=== PATIENT | male | born 1945 | race Caucasian/White ===

== ENCOUNTER 2018-05-12 11:38 | Outpatient (CLI) | payer MEDICARE, OTHER ==
[2018-05-12 12:14] LABS: Hemoglobin 12.8 g/dL (14.0-18.0); Red Blood Cell (RBC) Count 4.57 mill/uL (4.70-6.10); White Blood Cell (WBC) Count 7.2 thou/uL (4.8-10.8)
[2018-05-12 12:15] LABS: #Basophils 0.1 thou/uL (0.0-0.2); #Eosinphils 0.4 thou/uL (0.0-0.7); #Monocytes 0.5 thou/uL (0.11-0.59); #Neutrophils 5.1 thou/uL (1.40-6.50); %Basophils 0.8 % (0.0-1.0); %Eosinophils 5.5 % (0.0-10.0); %Lymphocytes 16.2 % (21.0-51.0); %Monocytes 6.4 % (0.0-10.0); %Neutrophils 71.1 % (42.0-75.0); MDiff Complete? YES; Manual Diff?? NO; Mean Corpuscular HGB CONC 32.3 g/dL (32.0-36.0); Mean Corpuscular Volume 86.7 fL (78.0-98.0); Mean Platelet Volume 6.5 fL (7.4-10.4); Platelet Count 201 thou/uL (130-400); RBC Distribution Width 12.3 % (11.5-14.5)
[2018-05-12 12:34] LABS: ALT (SGPT) 8 U/L (8-55); AST (SGOT) 20 U/L (5-34); Albumin 4.2 g/dL (3.4-4.8); Alkaline Phosphatase 106 U/L (40-150); Anion Gap 13 mmol/L (10-20); BUN (Urea Nitrogen) 17 mg/dL (8.4-25.7); Bilirubin, Total 0.4 mg/dL (0.2-1.2); Calc. Creatinine Clearance 0 mL/min (70-130); Calcium 9.5 mg/dL (7.8-10.44); Carbon Dioxide 29 mmol/L (23-31); Chloride 104 mmol/L (98-107); Estimated GFR-MDRD 65; Globulin 2.4 g/dL (2.4-3.5); Glucose 95 mg/dL (83-110); Potassium 4.4 mmol/L (3.5-5.1); Protein, Total 6.6 g/dL (5.8-8.1); Sodium 142 mmol/L (136-145)
[2018-05-12 17:25] LABS: Iron 79 ug/dL (65-175); Iron Binding Capacity, Total 284 mcg/dL (261-462)
== END 2018-05-12 11:39 | disposition home or self-care (01) ==
LOC: MADLAB 11:38
PROVIDERS: ATTEND Family Medicine
DX: R63.4 Abnormal weight loss (principal)
CPT/HCPCS: 36415; 80053; 83540; 83550; 85025; 87086

== ENCOUNTER 2018-08-27 13:04 | Outpatient (CLI) | payer MEDICARE, OTHER ==
[2018-08-27 14:45] LABS: #Basophils 0.1 thou/uL (0.0-0.2); #Eosinphils 0.3 thou/uL (0.0-0.7); #Lymphocytes 0.8 thou/uL (1.20-3.40); #Monocytes 0.5 thou/uL (0.11-0.59); %Eosinophils 3.7 % (0.0-10.0); %Lymphocytes 10.4 % (21.0-51.0); %Monocytes 6.1 % (0.0-10.0); %Neutrophils 78.9 % (42.0-75.0); Mean Corpuscular HGB CONC 32.1 g/dL (32.0-36.0); Mean Corpuscular Hemoglobin 28.5 pg (27.0-31.0); Mean Corpuscular Volume 88.7 fL (78.0-98.0); Mean Platelet Volume 6.7 fL (7.4-10.4); Platelet Count 255 thou/uL (130-400); RBC Distribution Width 12.4 % (11.5-14.5); Red Blood Cell (RBC) Count 4.55 mill/uL (4.70-6.10); White Blood Cell (WBC) Count 7.7 thou/uL (4.8-10.8)
[2018-08-27 14:50] LABS: Anion Gap 14 mmol/L (10-20); BUN (Urea Nitrogen) 17 mg/dL (8.4-25.7); Calc. Creatinine Clearance 0 mL/min (70-130); Carbon Dioxide 28 mmol/L (23-31); Chloride 104 mmol/L (98-107); Estimated GFR-MDRD 56; Potassium 3.9 mmol/L (3.5-5.1); Sodium 142 mmol/L (136-145)
[2018-08-27 14:51] LABS: ALT (SGPT) 10 U/L (8-55); AST (SGOT) 19 U/L (5-34); Albumin 4.1 g/dL (3.4-4.8); Alkaline Phosphatase 113 U/L (40-150); Bilirubin, Total 0.3 mg/dL (0.2-1.2); Calcium 9.6 mg/dL (7.8-10.44); Glucose 132 mg/dL (83-110); Protein, Total 7.1 g/dL (5.8-8.1)
--- NOTE | 2018-08-27 15:39 | RAD ---
FRONTAL VIEW CHEST: RIGHT RIB SERIES THREE VIEWS: INDICATIONS: Injury. Pain. FINDINGS: There is no evidence of consolidation or pneumothorax. There is mild blunting of the right costophre shelley sulcus. Granulomatous calcification of the chest is seen. There is a mildly displaced fracture involving the lateral aspect of the right eighth rib and subtle cortical irregularity of the lateral right ninth rib. There is mild vascular calcification. IMPRESSION: 1. Findings indicate nondisplaced fractures of the right 8th and 9th ribs. 2. No underlying pneumothorax. 3. Mild blunting of the right costophrenic sulcus could relate to small volume pleural fluid versus pleural thickening. POS: [facility]
[2018-08-27 21:45] LABS: Iron 55 ug/dL (65-175)
== END 2018-08-27 13:05 | disposition home or self-care (01) ==
LOC: MADLABBHPM 13:04
PROVIDERS: ATTEND Family Medicine
DX: N39.0 Urinary tract infection, site not specified (principal); R31.0 Gross hematuria
CPT/HCPCS: 36415; 80053; 82728; 83540; 85025; 87086

== ENCOUNTER 2019-01-14 12:46 | Outpatient (CLI) | payer MEDICARE, OTHER ==
[2019-01-14 13:51] LABS: Bilirubin Negative (Negative); Blood, Urine Large (Negative); Glucose, Urine (Dipstick) Negative (Negative); Leukocyte Negative (Negative); Nitrite Negative (Negative); Protein, Urine (Dipstick) 100 mg/dL (Neg-Trace); Specific Gravity, Urine 1.015 (1.005-1.030); Urobilinogen 0.2 mg/dL (0.2-1.0)
[2019-01-14 13:53] LABS: Clarity Cloudy (Clear)
[2019-01-14 13:56] LABS: PTT 35.9 SEC (22.9-36.1); Prothrombin Time 13.5 SEC (12.0-14.7)
[2019-01-14 14:00] LABS: #Eosinphils 0.4 thou/uL (0.0-0.7); #Lymphocytes 1.1 thou/uL (1.20-3.40); #Monocytes 0.5 thou/uL (0.11-0.59); #Neutrophils 5.1 thou/uL (1.40-6.50); %Basophils 0.5 % (0.0-1.0); %Eosinophils 6.2 % (0.0-10.0); %Lymphocytes 15.8 % (21.0-51.0); %Monocytes 7.5 % (0.0-10.0); Hemoglobin 13.4 g/dL (14.0-18.0); Mean Corpuscular Hemoglobin 29.1 pg (27.0-31.0); Mean Corpuscular Volume 91.1 fL (78.0-98.0); Mean Platelet Volume 7.9 fL (7.4-10.4); Platelet Count 218 thou/uL (130-400); RBC Distribution Width 13.2 % (11.5-14.5); Red Blood Cell (RBC) Count 4.61 mill/uL (4.70-6.10); White Blood Cell (WBC) Count 7.2 thou/uL (4.8-10.8)
[2019-01-14 14:04] LABS: Bacteria/HPF Rare-Few HPF (None Seen); RBC/HPF GREATER THAN 50-TNTC HPF (0-3); Squamous Epithelial 0-3 HPF (0-3); WBC/HPF 0-3 HPF (0-3)
[2019-01-14 14:06] LABS: ALT (SGPT) 10 U/L (8-55); AST (SGOT) 15 U/L (5-34); Albumin 4.3 g/dL (3.4-4.8); Alkaline Phosphatase 110 U/L (40-150); Anion Gap 16 mmol/L (10-20); BUN (Urea Nitrogen) 19 mg/dL (8.4-25.7); Bilirubin, Total 0.3 mg/dL (0.2-1.2); Calc. Creatinine Clearance 0 mL/min (70-130); Calcium 9.6 mg/dL (7.8-10.44); Carbon Dioxide 27 mmol/L (23-31); Chloride 104 mmol/L (98-107); Estimated GFR-MDRD 58; Globulin 2.8 g/dL (2.4-3.5); Glucose 95 mg/dL (83-110); Potassium 4.1 mmol/L (3.5-5.1); Protein, Total 7.1 g/dL (5.8-8.1); Sodium 143 mmol/L (136-145)
--- NOTE | 2019-01-14 15:05 | RAD ---
CHEST TWO VIEWS: INDICATIONS: Leg edema. CORRELATION: Chest film from 08/27/2018. FINDINGS: The lungs show no evidence of infiltrate or vascular congestion. There are two calcified granuloma o verlying the left upper lung, one peripherally measuring approximately 1.0 cm and another smaller in the left apical region. These are stable. Calcification in the soft tissues of the left axillary re gion is stable. The heart and mediastinum are unremarkable. The osseous structures are unremarkable . IMPRESSION: No acute process. POS: [facility]
== END 2019-01-14 12:47 | disposition home or self-care (01) ==
LOC: MADLABBHPM 12:46
PROVIDERS: ATTEND Family Medicine
DX: Z51.81 Encounter for therapeutic drug level monitoring (principal); Z01.818 Encounter for other preprocedural examination; D50.9 Iron deficiency anemia, unspecified; R30.0 Dysuria; R60.0 Localized edema; Z87.448 Personal history of other diseases of urinary system
CPT/HCPCS: 36415; 71046; 80053; 81001; 85025; 85610; 85730; 87086

== ENCOUNTER 2019-02-19 16:20 | Emergency (ER) | payer MEDICARE, OTHER ==
[~2019-02-19 16:20] MED LIST: Iopamidol 370 76% 100 ML VIAL ONE; Sodium Chloride 0.9% 100 ML BAG ONE
[2019-02-19] MEDS ORDERED: Morphine 4 MG/ML VIAL ONE (16:53)
[2019-02-19 17:21] LABS: Bilirubin Negative (Negative); Blood, Urine Large (Negative); Clarity Cloudy (Clear); Glucose, Urine (Dipstick) Negative (Negative); Leukocyte Negative (Negative); Nitrite Negative (Negative); Protein, Urine (Dipstick) > or equal to 300 mg/dL (Neg-Trace); Urobilinogen 0.2 mg/dL (0.2-1.0); pH, Urine 6.5 (5.0-9.0)
[2019-02-19 17:25] LABS: #Basophils 0.1 thou/uL (0.0-0.2); #Eosinphils 0.1 thou/uL (0.0-0.7); #Lymphocytes 0.7 thou/uL (1.20-3.40); #Monocytes 0.6 thou/uL (0.11-0.59); %Basophils 0.8 % (0.0-1.0); %Eosinophils 1.4 % (0.0-10.0); %Neutrophils 80.8 % (42.0-75.0); Hemoglobin 12.4 g/dL (14.0-18.0); Mean Corpuscular HGB CONC 32.5 g/dL (32.0-36.0); Mean Corpuscular Hemoglobin 28.7 pg (27.0-31.0); Mean Corpuscular Volume 88.1 fL (78.0-98.0); Mean Platelet Volume 6.6 fL (7.4-10.4); Platelet Count 200 thou/uL (130-400); RBC Distribution Width 12.7 % (11.5-14.5); Red Blood Cell (RBC) Count 4.31 mill/uL (4.70-6.10); White Blood Cell (WBC) Count 7.4 thou/uL (4.8-10.8)
[2019-02-19 17:29] LABS: RBC/HPF GREATER THAN 50-TNTC HPF (0-3); Specific Gravity, Urine 1.025 (1.002-1.036)
[2019-02-19 17:30] LABS: Bacteria/HPF 2+ HPF (None Seen); Squamous Epithelial None Seen HPF (0-3)
[2019-02-19 17:39] LABS: ALT (SGPT) Less than 7 U/L (8-55); AST (SGOT) 34 U/L (5-34); Alkaline Phosphatase 92 U/L (40-150); Anion Gap 12 mmol/L (10-20); BUN (Urea Nitrogen) 19 mg/dL (8.4-25.7); Bilirubin, Total 0.4 mg/dL (0.2-1.2); Calc. Creatinine Clearance 0 mL/min (70-130); Calcium 9.4 mg/dL (7.8-10.44); Carbon Dioxide 28 mmol/L (23-31); Chloride 105 mmol/L (98-107); Estimated GFR-MDRD 57; Globulin 2.6 g/dL (2.4-3.5); Glucose 98 mg/dL (83-110); Lipase 32 U/L (8-78); Protein, Total 6.6 g/dL (5.8-8.1); Sodium 141 mmol/L (136-145)
[2019-02-19] MEDS ORDERED: cefTRIAXone\\ROCEPHIN 1 GM VIAL ONE (17:56)
--- NOTE | 2019-02-19 18:18 | CT ---
FEXAM: Abdomen and pelvic CT scan with contrast: HISTORY: Pain COMPARISON: None FINDINGS: Mild atelectasis at each lung base Liver: Hypodensity of the left hepatic lobe favors a cyst. Additional punctate hypoattenuation of the hepatic parenchyma is too small to definitively characterize. There is mild intrahepatic biliary josiane fredo dilatation, most pronounced within the left hepatic lobe Gallbladder:Gallbladder is distended with cholelithiasis. Slight gallbladder wall hyperdensity also p resent Pancreas:Unremarkable Spleen:Unremarkable. Adrenal glands:Unremarkable. Kidneys:There is a tubular mixed density, predominantly hyperdense mass emanating from the left renal hilum, which measures5.9 x 3.9 cm, indicative of a large left renal malignancy, and hyperdensity wit hin this mass may relate to intratumoral hemorrhage versus avid enhancement, which cannot be further discerned on this exam given absence of precontrast imaging. Cyst is demonstrated within the lower po le of the right kidney, exophytic in morphology Bowel: Incompletely evaluated without enteric contrast. There is a large volume of retained fecal mat erial of the colon Urinary Bladder: There is extensive enlargement of the prostate gland which abuts the urinary bladder base. The urinary bladder is unopacified and limited in distention Adenopathy:No adenopathy within the abdomen or pelvis. Free Air: No free air. Ascites: No ascites. Osseous structures: Diffuse osseous demineralization. Multifocal areas of lucency are seen throughout the regional osseous structures, suspicious for multiple small lytic lesions. Associated, likely pat hologic superior endplate fracture of L4 is seen, with mild superior endplate height loss. 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 Findings suggest dif fuse lytic metastatic lesions with associated pathologic L4 compression fracture. Cholelithiasis. There is biliary ductal dilatation of the liver. Recommend clinical correlation in th is regard. Marked prostatomegaly with mass effect upon the bladder base Transcribed Date/Time: 02/19/2019 7:19 PM
== END 2019-02-19 20:21 | disposition short-term general hospital (02) ==
LOC: MADERS 16:20
DX: N28.89 Other specified disorders of kidney and ureter (principal); C79.51 Secondary malignant neoplasm of bone; R10.9 Unspecified abdominal pain; N39.0 Urinary tract infection, site not specified; N40.0 Benign prostatic hyperplasia without lower urinary tract symptoms; E11.9 Type 2 diabetes mellitus without complications; F32.9 Major depressive disorder, single episode, unspecified; Z79.899 Other long term (current) drug therapy
CPT/HCPCS: 36415; 74177; 80053; 81003; 81015; 83605; 83690; 85025; 87086; 93005; 96365; 96367; 96375; J0696; J1956; J2270; J7050; Q9967